=== PATIENT | male | born 1960 | race Caucasian/White ===

== ENCOUNTER 2016-06-23 12:19 | Inpatient (IN) | payer BC ==
[~2016-06-23] VITALS: Ht 177.8 cm; Wt 113.4 kg
[2016-07-03] MEDS ORDERED: HYDR-3516 PO (09:46)
[2016-07-03] MEDS ORDERED: METO100T9 PO (09:46)
[2016-07-03] MEDS ORDERED: FENO1TAB46 PO (09:46)
[2016-07-03] MEDS ORDERED: OMEP40CA2 PO (09:46)
[2016-07-03] MEDS ORDERED: LORA-400 PO (09:46)
[2016-07-03] MEDS ORDERED: IRON18TA2 PO (09:46)
[2016-07-03] MEDS ORDERED: ALPR1TAB3 PO (09:46)
[2016-07-03] MEDS ORDERED: NAPR220T95 PO (09:46)
--- NOTE | 2016-07-04 05:07 | MH ---
cc: ALONDRA QUIROZ M.D. DATE OF ADMISSION: 07/04/2016 ADMISSION DIAGNOSIS Right knee osteoarthritis. HISTORY This is a 55-year-old male with severe arthritis of the right knee. Despite conservative care the patient is painful and symptomatic. He presents for surgical treatment. PAST MEDICAL HISTORY, SOCIAL HISTORY, FAMILY HISTORY, REVIEW OF SYSTEMS See attached notes. PHYSICAL EXAMINATION GENERAL: Average build male in moderate distress with his right knee. HEENT: Normocephalic, atraumatic. Pupils equal, round, reactive to light and accommodation. Extraocular motions intact. NECK: Supple. CHEST: Clear. HEART: Regular rate and rhythm. ABDOMEN: Soft, nontender with normoactive bowel sounds. MUSCULOSKELETAL EXAMINATION: Right knee with pain with range of motion. Mild deformity. Crepitus with range of motion. NEUROLOGIC AND VASCULAR EXAMINATION: Within normal limits. IMPRESSION Osteoarthritis right knee. PLAN Right total knee replacement arthroplasty. CONSENT There are risks with surgery including infection, bleeding, loss of motion, continued pain, need for further surgery, neurologic and vascular injury. The patient understands these issues and wishes to press on with surgery as outlined above. MD ALICE Umanzor/JACLYN /10:45 PM /5:02 AM
[2016-07-04] MEDS ORDERED: VANCOMYCIN HCL 1000 MG VIAL ONE (06:10)
[2016-07-04] MEDS ORDERED: LACTATED RINGER'S 1000 ML INJ 1,000 ML ONE (06:10)
[2016-07-04] MEDS ORDERED: SODIUM CHLOR 0.9% 250 ML INJ 250 ML ONE (06:10)
[2016-07-04 06:20] VITALS: BP 140/89; PULSE 87; RESP 16; TEMP 97.9; O2SAT 95
[2016-07-04 06:30] VITALS: PULSE 82
[2016-07-04] MEDS ORDERED: LACTATED RINGER'S 1000 ML IV SCH (06:30)
[2016-07-04] MEDS ORDERED: INSULIN HUMAN REGULAR 1,000 UNITS/10 ML VIAL SQ PRN (06:30)
[2016-07-04] MEDS ORDERED: METOPROLOL TARTRATE 25 MG TAB PO PRN (06:30)
[2016-07-04] MEDS ORDERED: VANCOMYCIN 1000 MG/NS 250 ML (for <70 kg) IV SCH ×2 (06:30)
[2016-07-04] MEDS: SODIUM CHLORID 0.9% 500 ML IV SCH ×2 (06:30→23:10)
[2016-07-04] MEDS ORDERED: POVIDONE IODINE 7.5% SCRUB 118 ML BOTTLE TOPICAL SCH (06:30)
[2016-07-04] MEDS ORDERED: MIDAZOLAM HCL 5 MG/5 ML VIAL ONE (06:39)
[2016-07-04] MEDS ORDERED: EXPAREL PERI-ARTICULAR INJECTION (TOTAL VOL. 60 ML) P-ARTICULR SCH ×2 (07:30)
[2016-07-04] MEDS ORDERED: TRANEXAMIC ACID IV SCH (07:30)
[2016-07-04] MEDS ORDERED: ceFAZolin 2 GM PREMIX 50 ML ONE (07:30)
[2016-07-04] MEDS ORDERED: SODIUM CHLORIDE 0.9% IV SCH (07:30)
[2016-07-04] MEDS ORDERED: GENTAMICIN SULFATE 80 MG/2 ML VIAL IRRIGATION ONE (08:13)
[2016-07-04] MEDS: LACTATED RINGER'S 1000 ML INJ 1,000 ML IV SCH ×2 (09:54→22:24)
[2016-07-04] MEDS ORDERED: Post-op Orders (for Pharmacy) MISC XX ONE (10:00)
[2016-07-04] MEDS ORDERED: SODIUM CHLORIDE 0.9% FLUSH 5 ML FLUSH IVF PRN (10:00)
[2016-07-04] MEDS ORDERED: MISCELLANEOUS NURSING INFORMATION XX PRN (10:00)
[2016-07-04] MEDS ORDERED: MORPHINE SULFATE 8 MG/ML INJ IM PRN (10:00)
[2016-07-04] MEDS ORDERED: MISCELLANEOUS PHARMACY INFORMATION XX ONE (10:00)
[2016-07-04] MEDS ORDERED: oxyCODONE/ACETAMINOPHEN 5 MG/325 MG TAB PO PRN (10:00)
[2016-07-04] MEDS ORDERED: NALOXONE HCL 0.4 MG/ML AMP IV PRN (10:00)
[2016-07-04] MEDS ORDERED: TRANEXAMIC ACID INJ 1,100 MG in SODIUM CHLORIDE 0.9% INJ 100 ML IV SCH (10:00)
[2016-07-04] MEDS ORDERED: ALPRAZolam 1 MG TAB PO PRN (10:00)
--- NOTE | 2016-07-04 10:07 | PD.OP ---
cc: Shukri Corral MD Operative Report Date of Surgery: Jul 04, 2016 Preoperative Diagnosis: Osteoarthritis right knee, end-stage. Status post ACL reconstruction, remote Postoperative Diagnosis: Same Procedure: Right total knee replacement arthroplasty, anterior Anesthesia: Gen. Surgeon: Shukri Corral [employer] Operations Specialist(s): KEVIN Miles Operation and Findings: EBL: 200 cc INDICATION: This patient presents with long-standing arthritis of the knee. Attachment record documents conservative measures. The patient now presents for surgical treatment. NOTE: July Mlies PA-C was present for the entire surgical procedure as my nurse first assist. In my medical opinion her skill and care was necessary for proper management of this patient. TOURNIQUET TIME: 80 minutes COMPANY: [employer] FEMUR: Size 5, posterior cruciate sacrificing TIBIA: Size 5, fixed bearing PATELLA: 38 mm POLYETHYLENE INSERT: 9 mm PROCEDURE: This patient was brought the operating room and anesthetized in the supine position. The patient was positioned supine on the table. The tourniquet was placed about the thigh, and the leg was scrubbed with alcohol followed by Hibiclens followed by ChloraPrep and draped sterilely. A timeout was done, and antibiotics were given. After exsanguination the tourniquet was inflated to 250 mmHg. An anterior incision was made and a median parapatellar arthrotomy was performed. The previous incision was excised. The patella was released laterally and subluxed allowing freehand cut of the patella which was then sized. A metal cap was placed over the exposed patellar surface for protection. A pilot teacher hole was placed in the distal femur allowing a 5 valgus cut removing 12 mm from the distal femur. Anterior posterior and chamfer cuts were made. The posterior stabilize osteotomy was made. The attention was directed to the tibia. Retractors were positioned. The external alignment guide was used allowing the lateral tibia to be used as referencing guide and cut utilizing an oscillating saw taking care to avoid any injury to the surrounding soft tissues. This was sized properly. Trial reduction showed that the insert fit nicely. The patient had range of motion extension 0 flexion 120. A medial release was necessary. The bony surfaces prepared. On the back table 2 packets of methylmethacrylate were mixed. The components were cemented. Excess cement was removed. The tourniquet let down and hemostasis was controlled. The final plastic insert was inserted. Range of motion was the same as previously noted. A drain was brought through a separate stab incision. The arthrotomy was repaired with interrupted #1 Vicryl suture, subcutaneous tissue 2-0 Vicryl suture and skin with metallic evelina A sterile dressing was applied. Sponge counts, needle counts and instrument counts were all correct. The patient tolerated procedure well and was taken to recovery in satisfactory condition. FINDINGS: There was evidence of previous interference screws for an ACL graft which were removed. There was a significant varus deformity. The MCL release was from the deep fibers allowing a correction of the deformity. The final solution was very satisfactory. Shukri Corral MD Jul 04, 2016 10:07
[2016-07-04] MEDS ORDERED: OXYC1TAB63 PO (10:08)
[2016-07-04] MEDS ORDERED: XARE10TA PO (10:08)
[2016-07-04] MEDS ORDERED: BUPIVACAINE HCL PF 0.5% 30 ML VIAL NERV BLOCK ONE (10:33)
[2016-07-04] MEDS ORDERED: fentaNYL CITRATE 250 MCG/5 ML AMP ONE (10:55)
[2016-07-04] MEDS ORDERED: MORPHINE SULFATE 4 MG/ML INJ ONE (10:59)
[2016-07-04] MEDS ORDERED: *morphine SULFATE 8 MG/ML PERIprocedure ONLY ONE ×2 (11:07→11:13)
[2016-07-04] MEDS ORDERED: DO NOT ADM ANY ANTICOAGULANT DRUGS XX PRN (11:30)
--- NOTE | 2016-07-04 11:30 | RADRPT ---
EXAM DATE/TIME: 07/04/2016 10:54 [facility] COMPARISON: No previous studies available for comparison. INDICATIONS : Post op right total knee. MEDICAL HISTORY : None. SURGICAL HISTORY : None. ENCOUNTER: Initial ACUITY: 1 day PAIN SCORE: Non-responsive. LOCATION: Right knee. FINDINGS: 2 views of the knee show a total knee prosthesis in good position. No fracture or dislocation is obse rved. Soft tissue swelling is noted. Small joint effusion. A surgical drain surgical evelina noted. CONCLUSION: Total knee prosthesis in good position. Mak Longo Jr., MD on July 04, 2016 at 11:17 Board Certified Radiologist. This report was verified electronically.
[2016-07-04] MEDS: MORPHINE SULFATE 30 MG/30 ML PCA IV SCH ×2 (11:48→23:14)
[2016-07-04 12:00] VITALS: BP 137/84; PULSE 84; RESP 18; TEMP 97.4; O2SAT 94
[2016-07-04] MEDS ORDERED: PROPOFOL 200 MG/20 ML AMP IV ONE (12:00)
[2016-07-04] MEDS ORDERED: LACTATED RINGER'S 1000 ML INJ 1,000 ML IV ONE (12:00)
[2016-07-04] MEDS ORDERED: ONDANSETRON HCL 4 MG/2 ML VIAL IV PUSH ONE (12:00)
[2016-07-04 16:17] VITALS: BP 112/82; PULSE 90; RESP 22; TEMP 98.7; O2SAT 98
[2016-07-04] MEDS ORDERED: WALKER WHEELS/F1 MIS (17:15)
[2016-07-04] MEDS ORDERED: CPMMACHINE (17:15)
--- NOTE | 2016-07-04 17:16 | HHI.FF ---
Face to Face Verification Diagnosis: (1) Right knee pain (2) Osteoarthritis of right knee Physical Therapy Gait training, Safety evaluation, Transfer training, bed to chair Knee: Total knee, Protocol: Right, Full weight bearing Canvas Knee Splint: When in bed & 2 pillows btw thighs Right LE Weight Bearing: WB as tolerated Additional Instructions PT 5 days/wk for 2 weeks. WBAT RLE. Walker as needed. CPM, 0-70 w goal of 100 flexion. CKS at night. Nursing RN Days per Week: 3 x Week(s): 1 Dressing Changes: Do not change dressing Additional Instructions Vitals assessment, dressing assessment - do not change unless saturated. I have seen patient Du Hernandez on 07/04/16. My clinical findings support the need for the requested home health care services because: Limited ability to care for self High risk of falls I certify that my clinical findings support that this patient is homebound because: Post-op weakness Unsteady gait/balance Sujey Centeno Jul 04, 2016 17:16
[2016-07-04 19:44] VITALS: BP 131/85; PULSE 93; RESP 20; TEMP 96.7
[2016-07-04 20:51] VITALS: O2SAT 98
[2016-07-04] MEDS: SODIUM CHLORIDE 0.9% FLUSH 5 ML FLUSH IVF SCH (21:00)
[2016-07-04] MEDS: SENNOSIDES 8.6 MG TAB PO SCH (21:28)
[2016-07-04] MEDS: MAGNESIUM HYDROXIDE SUSP 30 ML CUP PO SCH (21:29)
[2016-07-04] MEDS: LORATADINE/PSEUDOEPHEDRINE 5 MG/120 MG TAB PO SCH (21:30)
[2016-07-04] MEDS: PCA - TOTAL MG MORPHINE DELIVERED PER SHIFT SCH (22:00)
[2016-07-04] MEDS: TEMAZEPAM 15 MG CAP PO PRN (23:03)
[2016-07-05] VITALS (7 sets, daily range): BP systolic 123–150; BP diastolic 78–94; PULSE 90–109; RESP 18–20; TEMP 98.7–99.6; O2SAT 93–99
[2016-07-05] MEDS: LACTATED RINGER'S 1000 ML INJ 1,000 ML IV SCH ×2 (01:44→20:07)
[2016-07-05] MEDS: PCA - TOTAL MG MORPHINE DELIVERED PER SHIFT SCH (06:00)
[2016-07-05 06:05] LABS: HEMATOCRIT 34.6 % (39.0-51.0); REVIEW FLAG FINAL
--- NOTE | 2016-07-05 07:43 | PD.ORT.PN ---
Subjective Subjective Remarks Right knee pain doing very well until this morning. Pain began to increase when block wore off. No other concerns. No CP or SOB. Was about to order breakfast. Objective Vitals Vital Signs Date Time Temp Pulse Resp B/P Pulse Ox O2 Delivery O2 Flow Rate FiO2 07/05/16 04:00 98.7 90 18 134/78 96 07/05/16 00:00 98.8 94 18 139/94 95 07/04/16 23:19 16 07/04/16 23:14 16 07/04/16 22:00 15 07/04/16 20:51 98 Nasal Cannula 2.00 07/04/16 19:44 96.7 93 20 131/85 07/04/16 16:17 98.7 90 22 112/82 98 07/04/16 12:00 97.4 84 18 137/84 94 07/04/16 11:48 12 07/04/16 11:30 98.3 87 14 136/82 99 Nasal Cannula 3 07/04/16 11:15 83 14 151/89 97 Nasal Cannula 3 07/04/16 11:00 82 14 153/90 97 Nasal Cannula 3 07/04/16 10:45 78 14 140/89 97 Nasal Cannula 3 07/04/16 10:34 98.3 78 14 155/82 95 Nasal Cannula 4 I/O 07/04/16 07/04/16 07/04/16 07/05/16 07/05/16 07/05/16 07:00 15:00 23:00 07:00 15:00 23:00 Intake Total 1100 ml 1536 ml 240 ml Output Total 910 ml 70 ml 1100 ml Balance 190 ml 1466 ml -860 ml Intake Oral 240 ml 240 ml IV Total 1296 ml Other 1100 ml Output Urine Total 600 ml 1100 ml Drainage Total 110 ml 70 ml Estimated Blood Loss 200 ml # Bowel Movements 0 0 Result Diagram: 07/05/16 0459 Imaging Last 24 hours Impressions Knee X-Ray 07/04/16 0954 Signed Impressions: Service Date/Time: Monday, July 04, 2016 10:54 - CONCLUSION: Total knee prosthesis in good position. Mak Longo Jr., MD Objective Remarks Sitting up in bed, NAD VSS RLE Dressing / CKS in place, drain in place, mild swelling thigh and calf both supple, neg homans +motor at, +sens, +nvi Assessment & Plan Ortho Post Op Day #: 1 Problem List: Assessment and Plan pod#1 s/p R TKA Doing well. 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 PT - WBAT LLE. Walker as needed. CPM 0-60 with goal of 100. Xarelto 10mg qd D/C right knee drain. Hold dressing changes unless saturated. D/C planning, home w [facility] tomorrow. F2F written. Sujey Centeno Jul 05, 2016 07:43
[2016-07-05] MEDS: PANTOPRAZOLE SOD 40 MG DELAYED RELEASE TAB PO SCH (08:28)
[2016-07-05] MEDS: METOPROLOL SUCCINATE 50 MG EXTENDED RELEASE TAB PO SCH (08:29)
[2016-07-05] MEDS: MAGNESIUM HYDROXIDE SUSP 30 ML CUP PO SCH ×2 (08:31→20:06)
[2016-07-05] MEDS: LORATADINE/PSEUDOEPHEDRINE 5 MG/120 MG TAB PO SCH ×2 (08:32→20:09)
[2016-07-05] MEDS: SODIUM CHLORIDE 0.9% FLUSH 5 ML FLUSH IVF SCH ×2 (08:32→20:06)
[2016-07-05] MEDS: oxyCODONE/ACETAMINOPHEN 5 MG/325 MG TAB PO PRN ×3 (11:54→20:06)
[2016-07-05] MEDS: RIVAROXABAN 10 MG TAB PO SCH (11:55)
[2016-07-05] MEDS: TEMAZEPAM 15 MG CAP PO PRN (20:06)
[2016-07-05] MEDS: SENNOSIDES 8.6 MG TAB PO SCH (20:06)
[2016-07-05] MEDS ORDERED: CARISOPRODOL 350 MG TAB PO PRN (21:30)
[2016-07-06] VITALS: BP 131/81; PULSE 93; RESP 16; TEMP 98.8; O2SAT 96
[2016-07-06] MEDS: oxyCODONE/ACETAMINOPHEN 5 MG/325 MG TAB PO PRN ×2 (06:06→10:55)
[2016-07-06 08:02] VITALS: BP 125/69; PULSE 94; RESP 16; TEMP 97; O2SAT 93
--- NOTE | 2016-07-06 08:46 | PD.ORT.PN ---
Subjective Subjective Remarks Right knee pain doing better today. He states he has adjusted to it. No new complaints. Would prefer to go home today. urinating well. No CP or SOB. Objective Vitals Vital Signs Date Time Temp Pulse Resp B/P Pulse Ox O2 Delivery O2 Flow Rate FiO2 07/06/16 08:02 97.0 94 16 125/69 93 07/06/16 00:00 98.8 93 16 131/81 96 07/05/16 20:28 99.3 109 20 123/80 96 07/05/16 17:10 99.1 90 20 126/80 99 07/05/16 16:00 99.6 101 18 142/87 93 07/05/16 12:00 98.9 106 18 143/90 95 I/O 07/05/16 07/05/16 07/05/16 07/06/16 07/06/16 07/06/16 07:00 15:00 23:00 07:00 15:00 23:00 Intake Total 240 ml 1220 ml 240 ml 240 ml Output Total 1100 ml Balance -860 ml 1220 ml 240 ml 240 ml Intake Oral 240 ml 1220 ml 240 ml 240 ml Output Urine Total 1100 ml # Voids 3 1 2 # Bowel Movements 0 0 0 1 Result Diagram: 07/05/16 0459 Imaging Last 24 hours Impressions Knee X-Ray 07/04/16 0954 Signed Impressions: Service Date/Time: Monday, July 04, 2016 10:54 - CONCLUSION: Total knee prosthesis in good position. Mak Longo Jr., MD Objective Remarks Sitting up in bed, NAD VSS RLE Dressing c/d/i, cks off, drain removed - site clean, mild swelling thigh and calf both supple, neg homans +motor at, +sens, +nvi Assessment & Plan Ortho Post Op Day #: 2 Problem List: Assessment and Plan pod#2 s/p R TKA Ortho stable. Ok to d/c home w [facility] after PT today. PO pain meds as needed. PT - WBAT LLE. Walker as needed. CPM 0-60 with goal of 100. Xarelto 10mg qd Hold dressing changes unless saturated. F/U in 2 weeks as scheduled. F2F written. Sujey Centeno Jul 06, 2016 08:46
--- NOTE | 2016-07-06 08:46 | HHI.DCPOC ---
Discharge Care Plan Diagnosis: (1) Right knee pain (2) Osteoarthritis of right knee Your Health Problems Are: Incision/Drains Swelling Goals to Promote Your Health * To prevent worsening of your condition and complications * To maintain your health at the optimal level Directions to Meet Your Goals Take your medications as prescribed Follow your dietary instruction Follow activity as directed Keep your appointments as scheduled Take your immunizations and boosters as scheduled If your symptoms worsen call your PCP, if no PCP go to Urgent Care Center or Emergency Room Smoking is Dangerous to Your Health. Avoid second hand smoke Call the 24-hour hour crisis hotline for domestic abuse at Sujey Centeno Jul 06, 2016 08:46
--- NOTE | 2016-07-06 08:51 | HHI.DS ---
Discharge Summary Admission Date Jul 04, 2016 at 05:38 Discharge Date: Jul 06, 2016 Admitting Diagnosis see below Diagnosis: (1) Right knee pain Diagnosis: Principal (2) Osteoarthritis of right knee Diagnosis: Principal Procedures Right total knee arthroplasty Brief History This is a 55 year old male patient with a long history of right knee pain. He had a previous ACL repair. He slowly began to have increased knee pain so he sought out new medical evaluation. He was found to have moderate to severe osteoarthritis of the right knee. He also began to develop a significant varus deformity of almost 15 degrees. Conservative measures were pursued for a period of time but he continued to decline. Surgical treatment was eventually recommended and he elected to move forward. CBC/BMP: 07/05/16 0459 Significant Findings Laboratory Tests Test 07/05/16 04:59 Hemoglobin 11.3 GM/DL (13.0-17.0) Hematocrit 34.6 % (39.0-51.0) PE at Discharge Sitting up in bed, NAD VSS RLE Dressing c/d/i, cks off, drain removed - site clean, mild swelling thigh and calf both supple, neg homans +motor at, +sens, +nvi Hospital Course Surgical treatment was performed on the day of admission without complication. He recovered well in pACU and was transferred to the orthopaedic floor. Pain was controlled with IV and oral medications. DVT prophylaxis was initiated pod# 1. He was compliant with physical therapy, his CPM, and all restrictions. After 2 days he was found to be stable and discharged home with home health care with instruction to continue PT and to pursue a high fiber diet for the next 3-5 days. Pt Condition on Discharge: Stable Discharge Disposition: Disch w/ Home Health Serv Discharge Instructions Diet Instructions: As Tolerated, No Restrictions, High Fiber Diet Activities You Can Perform: Weight Bearing as Ruben Activities to Avoid: Strenuous Activity Additional Activity Instruc.: TKA protocol New Medications: CPM-Continuous Passive Motion Machine (CPM-Continuous Passive Motion Machine) 1 Ea Device 1 EA .ROUTE DIRECTED #1 Ref 0 EA Walker with Front Wheels (Walker with Front Wheels) 1 Mis Mis 1 EA .ROUTE DIRECTED #1 Ref 0 EA Oxycodone-Acetaminophen (Oxycodone-Acetaminophen) 5-325 mg Tab 1 TAB PO Q4H PRN PAIN LESS THAN 5 ON SCALE #50 TAB Rivaroxaban (Xarelto) 10 Mg Tab 10 MG PO Q24H Prevent Blood Clot #15 TAB Continued Medications: Alprazolam (Alprazolam) 1 Mg Tab 1 MG PO Q6H PRN ANXIETY Ref 0 TAB Fenofibrate (Fenofibrate) 40 Mg Tab 16 MG PO DAILY #30 Ref 0 TAB Ferrous Fumarate (Iron) 18 Mg Tab Unknown Dose PO DAILY Nutritional Supplement Ref 0 TAB Hydrocodone-Acetaminophen (Hydrocodone-Acetaminophen) 5-325 mg Tab 1 TAB PO Q4H PRN PAIN Ref 0 TAB Loratadine-Pseudoephedrine 24 HR (Claritin-D 24 HR) 10-240 Mg Tab 1 TAB PO DAILY Allergy Management Ref 0 TAB Metoprolol Succinate ER 24 HR (Metoprolol Succinate ER 24 HR) 100 Mg Tab 150 MG PO DAILY #30 Ref 0 TAB Naproxen Sodium (Aleve) 220 Mg Tab 220 MG PO QID PRN Pain Management Ref 0 TAB Omeprazole (Omeprazole) 40 Mg Cap 40 MG PO DAILY #30 Ref 0 CAP Sujey Centeno Jul 06, 2016 08:51
[2016-07-06] MEDS: LORATADINE/PSEUDOEPHEDRINE 5 MG/120 MG TAB PO SCH (09:00)
[2016-07-06] MEDS: SODIUM CHLORIDE 0.9% FLUSH 5 ML FLUSH IVF SCH (09:00)
[2016-07-06] MEDS: MAGNESIUM HYDROXIDE SUSP 30 ML CUP PO SCH (09:00)
[2016-07-06 10:02] VITALS: O2SAT 94
[2016-07-06] MEDS: PANTOPRAZOLE SOD 40 MG DELAYED RELEASE TAB PO SCH (10:50)
[2016-07-06] MEDS: METOPROLOL SUCCINATE 50 MG EXTENDED RELEASE TAB PO SCH (10:50)
[2016-07-06] MEDS: RIVAROXABAN 10 MG TAB PO SCH (10:50)
[2016-07-06] MEDS ORDERED: NEOSTIGMINE 3 MG/3 ML SYR IV ONE (12:00)
[2016-07-06 12:02] VITALS: BP 131/80; PULSE 94; RESP 18; TEMP 97.7; O2SAT 96
== END 2016-07-06 13:33 | disposition home or self-care (01) | DRG 470 ==
LOC: HSDI 07-04 05:38 → N06B 07-04 11:56
PROVIDERS: ADMIT Orthopaedic Surgery Orthopaedic Surgery of the Spine; ATTEND Orthopaedic Surgery Orthopaedic Surgery of the Spine
PROC: 0SRC0J9 Replacement of Right Knee Joint with Synthetic Substitute, Cemented, Open Approach (ICD-10-PCS; principal; 2016-07-04 07:24)
DX: M17.11 Unilateral primary osteoarthritis, right knee (principal); I10 Essential (primary) hypertension; F41.9 Anxiety disorder, unspecified; K21.9 Gastro-esophageal reflux disease without esophagitis; E66.9 Obesity, unspecified; Z68.35 Body mass index [BMI] 35.0-35.9, adult; F17.210 Nicotine dependence, cigarettes, uncomplicated
CPT/HCPCS: 36415; 73560; 80048; 81001; 85014; 85018; 85025; 85610; 85652; 85730; 86850; 86900; 86901; 86920; 94150; C1776; C9290; J0690; J1580; J2250; J2270; J2405; J2710; J3010; J3370; J7050; J7120; L1830

== ENCOUNTER → 2016-07-03 | Outpatient (CLI) | payer BC ==
[~2016-07-03] MED LIST: ALPR1TAB3 PO; CPMMACHINE; FENO1TAB46 PO; HYDR-3516 PO; IRON18TA2 PO; LORA-400 PO; METO100T9 PO; NAPR220T95 PO; OMEP40CA2 PO; OXYC1TAB63 PO; WALKER WHEELS/F1 MIS; XARE10TA PO
[2016-07-03 10:13] LABS: AUTOMATED NEUTROPHIL # 8.4 TH/MM3 (1.8-7.7); BASOPHIL % 0.3 % (0.0-2.0); EOSINOPHIL # 0.2 TH/MM3 (0-0.4); EOSINOPHIL % 1.8 % (0.0-4.0); HEMATOCRIT 40.4 % (39.0-51.0); HEMO FLAGS DIFF FINAL; LYMPH % 21.5 % (9.0-44.0); LYMPHOCYTE # 2.7 TH/MM3 (1.0-4.8); MEAN CELL VOLUME 90.8 FL (80.0-100.0); MEAN CORPUSCULAR HEMOGLOBIN 29.8 PG (27.0-34.0); MEAN CORPUSCULAR HGB CONC 32.9 % (32.0-36.0); MONO % 10.1 % (0.0-8.0); NEUT % 66.3 % (16.0-70.0); PLATELET COUNT 310 TH/MM3 (150-450); RED BLOOD COUNT 4.46 MIL/MM3 (4.50-5.90); RED CELL DISTRIBUTION WIDTH 14.5 % (11.6-17.2); WHITE BLOOD COUNT 12.7 TH/MM3 (4.0-11.0)
[2016-07-03 10:17] LABS: BLOOD, URINE SMALL (NEG); GLUCOSE,URINE NEG (NEG); KETONE, URINE NEG (NEG); MUCUS URINE FEW /lpf (OCC); NITRITE,URINE NEG (NEG); PH, URINE 5.5 (5.0-8.5); SQUAMOUS EPITHELIAL CELL URINE <1 /hpf (0-5); URINE COLOR YELLOW (YELLW/STRAW)
[2016-07-03 10:18] LABS: COMMENT (UR) CULT NOT INDICATED; CULTURE IF INDICATED CULT NOT INDICATED
[2016-07-03 10:19] LABS: APTT (PATIENT) 27.1 SEC (24.3-30.1); PROTHROMBIN TIME - PATIENT 10.5 SEC (9.8-11.6)
[2016-07-03 10:28] LABS: BICARBONATE 27.4 MEQ/L (21.0-32.0); POTASSIUM 4.2 MEQ/L (3.5-5.1)
[2016-07-03 10:31] LABS: WESTERGREN SEDIMENTATION RATE 19 mm/hr (0-20)
== END ==
LOC: CPRE 09:15
PROVIDERS: ATTEND Orthopaedic Surgery Orthopaedic Surgery of the Spine
DX: Z01.812 Encounter for preprocedural laboratory examination (principal); M17.11 Unilateral primary osteoarthritis, right knee; Z79.01 Long term (current) use of anticoagulants
CPT/HCPCS: 36415; 80048; 81001; 85025; 85610; 85652; 85730

== ENCOUNTER 2016-10-31 13:31 | Inpatient (IN) | payer BC ==
[~2016-10-31] VITALS: Ht 177.8 cm; Wt 127.4 kg
[~2016-10-31 13:31] MED LIST changes: -CPMMACHINE; -FENO1TAB46 PO; -IRON18TA2 PO; -NAPR220T95 PO; -OXYC1TAB63 PO; -WALKER WHEELS/F1 MIS; -XARE10TA PO
[2016-11-06] MEDS ORDERED: FENO160T PO (11:57)
[2016-11-06] MEDS ORDERED: MEDI220T PO (11:57)
[2016-11-06] MEDS ORDERED: MULT1TAB46 PO (11:58)
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
[2016-11-07] MEDS ORDERED: SODIUM CHLORIDE 0.9% IV SCH (07:00)
[2016-11-07] MEDS ORDERED: POVIDONE IODINE 7.5% SCRUB 118 ML BOTTLE TOPICAL SCH (07:00)
[2016-11-07] MEDS ORDERED: SODIUM CHLORID 0.9% 500 ML IV PRN (07:00)
[2016-11-07] MEDS ORDERED: LACTATED RINGER'S 1000 ML IV PRN (07:00)
[2016-11-07] MEDS ORDERED: EXPAREL PERI-ARTICULAR INJECTION (TOTAL VOL. 60 ML) P-ARTICULR SCH ×2 (07:00)
[2016-11-07] MEDS ORDERED: METOPROLOL TARTRATE 25 MG TAB PO PRN (07:00)
[2016-11-07] MEDS ORDERED: INSULIN HUMAN REGULAR 1,000 UNITS/10 ML VIAL SQ PRN (07:00)
[2016-11-07] MEDS ORDERED: TRANEXAMIC ACID IV SCH (07:00)
[2016-11-07] MEDS ORDERED: POVIDONE IODINE 5% (ANTISEPSIS KIT) 4 APPLICATIONS EACH NARE PRN (07:00)
[2016-11-07] MEDS ORDERED: ceFAZolin 2 GM PREMIX 50 ML IV SCH (07:00)
[2016-11-07] MEDS ORDERED: CHLORHEXIDINE GLUCONATE 2 % 1 PACK (2 CLOTHS) TOPICAL PRN (07:00)
[2016-11-07] MEDS ORDERED: VANCOMYCIN 1000 MG/NS 250 ML (for <70 kg) IV SCH ×2 (07:00)
[2016-11-07] MEDS ORDERED: GENTAMICIN SULFATE 80 MG/2 ML VIAL ONE (07:08)
[2016-11-07] MEDS ORDERED: CORTI10A RIGHT EAR (07:29)
[2016-11-07 07:31] VITALS: BP 150/91; PULSE 102; RESP 18; TEMP 98; O2SAT 97
[2016-11-07] MEDS ORDERED: ACETAMINOPHEN 1000 MG/100 ML VIAL IV ONE (08:14)
[2016-11-07] MEDS ORDERED: MIDAZOLAM HCL 2 MG/2 ML VIAL ONE (08:14)
[2016-11-07] MEDS ORDERED: FAMOTIDINE 20 MG/2 ML VIAL ONE (08:14)
[2016-11-07] MEDS ORDERED: MAGNESIUM HYDROXIDE SUSP 30 ML CUP PO PRN (11:30)
[2016-11-07] MEDS ORDERED: MORPHINE SULFATE 8 MG/ML INJ IV PUSH PRN (11:30)
[2016-11-07] MEDS ORDERED: diphenhydrAMINE HCL 25 MG CAP PO PRN (11:30)
[2016-11-07] MEDS ORDERED: NALOXONE HCL 0.4 MG/ML AMP IV PRN (11:30)
[2016-11-07] MEDS ORDERED: Post-op Orders (for Pharmacy) MISC XX ONE (11:30)
[2016-11-07] MEDS ORDERED: ACETAMINOPHEN/HYDROcodone 325 MG/10 MG TAB PO PRN ×2 (11:30)
[2016-11-07] MEDS ORDERED: ALPRAZolam 1 MG TAB PO PRN (11:30)
[2016-11-07] MEDS ORDERED: LORATADINE PSEUDOEPHEDRINE PO PRN (11:30)
[2016-11-07] MEDS ORDERED: ONDANSETRON HCL 4 MG/2 ML VIAL IVP PRN (11:30)
[2016-11-07] MEDS ORDERED: SODIUM CHLORIDE 0.9% FLUSH 5 ML FLUSH IVF PRN (11:30)
--- NOTE | 2016-11-07 11:34 | PD.OP ---
cc: Diana Corral MD Operative Report Date of Surgery: Nov 07, 2016 Preoperative Diagnosis: Malunion left tibia and fibula Postoperative Diagnosis: Same Procedure: Osteotomy left fibula. Osteotomy right tibia with internal fixation Anesthesia: Gen. Surgeon: Diana Corral Label Remover(s): KEVIN Miles Operation and Findings: EBL: 50 cc INDICATION: This patient presents with a significant deformity to the left leg related to a malunion of the tibia treated many years ago. The patient developing significant arthritis of the knee. The patient now presents for an osteotomy with realignment of the tibia with an osteotomy of the fibula. The patient may come to total knee replacement arthroplasty NOTE: July Miles PA-C was present for the entire surgical procedure as my first helper. In my medical opinion her skill and care was necessary for the proper management of this patient. COMPONENTS: COMPANY: [employer] PROCEDURE: This patient was brought to the operating room and anesthetized in the supine position and positioned on the Casey table. The left leg was scrubbed with alcohol followed by Hibiclens followed by chloro prep and draped sterilely. Antibiotics were given within 1 hour time window and a timeout was done. Intraoperative fluoroscopy was used marking proper skin markings. After elevation the tourniquet was inflated to 250 mmHg. A lateral incision was made. The fibula was exposed. It was osteotomized with a saw and osteotome at the location of his previous fracture which was malunited with a apex posterior and apex medial deformity. The wound was irrigated copiously. It was then closed with 2-0 Vicryl followed by running 3-0 Vicryl and Steri-Strips. The attention was directed to the major deformity of the tibia. An incision was made over the anteromedial aspect of the tibia. The fracture malunion was exposed. We expose around posteriorly and medially extending to the anterior portion but not significantly laterally. 2 Steinmann pins were used to diana the osteotomy was carefully measured using intraoperative fluoroscopy. An osteotomy to plain was made allowing reduction of the deformity. The fractures brought into reduced position and held with a large Steinmann pin. Intraoperative x-rays were obtained. An 8 hole plate was utilized. There was a shift of the osteotomy allowing a significant prominence of the previous callus on the medial side which was removed with the oscillating saw. A portion was removed later anteriorly. The 8 hole plate was contoured allowing compression across the fracture site. Multiple compression screws were utilized. This was brought into a near anatomic reduced position and alignment was felt be very satisfactory. All 8 screws were utilized. A single lag screw was placed anterior to posterior outside of the plate. Intraoperative x-rays were obtained. Alignment was satisfactory. The wound was irrigated copious the. Hemostasis was controlled. The tourniquet was let down. The deep fascia was approximated with interrupted #1 Vicryl suture, subcutaneous tissue 2-0 Vicryl suture and skin with running intradermal 3-0 Vicryl followed by benzoin and Steri-Strips. A posterior splint was applied. A sterile dressing was applied. The patient was awakened and taken to the recovery room in satisfactory condition FINDINGS: There was a solid malunion. The final reduction was excellent. Fixation was excellent. We could not determine any complications during the surgery. Diana Corral MD Nov 07, 2016 11:34
[2016-11-07] MEDS ORDERED: HYDR-3583 PO (11:39)
[2016-11-07] MEDS ORDERED: ENOX40P SQ (11:39)
[2016-11-07] MEDS ORDERED: *HYDROmorphone PF 1 MG VIAL PERIprocedural Use ONLY ONE ×2 (12:00→12:52)
[2016-11-07] MEDS ORDERED: ePHEDrine/NS 25 MG/5 ML SYR IV ONE (12:00)
[2016-11-07] MEDS ORDERED: PHENYLEPH/NS 1000 MCG/10 ML SYR IV ONE (12:00)
[2016-11-07] MEDS ORDERED: LACTATED RINGER'S 1000 ML INJ 1,000 ML IV ONE (12:00)
[2016-11-07] MEDS ORDERED: PROPOFOL 200 MG/20 ML AMP IV ONE (12:00)
[2016-11-07] MEDS ORDERED: ONDANSETRON HCL 4 MG/2 ML VIAL IV PUSH ONE (12:00)
[2016-11-07] MEDS ORDERED: NEOSTIGMINE 3 MG/3 ML SYR IV ONE (12:00)
[2016-11-07] MEDS: LACTATED RINGER'S 1000 ML INJ 1,000 ML IV SCH ×2 (12:00→19:51)
[2016-11-07] MEDS ORDERED: DO NOT ADM ANY ANTICOAGULANT DRUGS PRN (12:02)
--- NOTE | 2016-11-07 12:12 | RADRPT ---
EXAM DATE/TIME: 11/07/2016 11:05 [facility] COMPARISON: No previous studies available for comparison. INDICATIONS : ORIF Left tibia. MEDICAL HISTORY : None. SURGICAL HISTORY : None. ENCOUNTER: Initial ACUITY: 1 day PAIN SCORE: Non-responsive. LOCATION: Left tibia/fibula. FINDINGS: There is plate and screw fixation across previous fracture and osteotomy of the left tibia. There is also an osteotomy and remote fracture fibula. CONCLUSION: 1. Tibial fixation as above. Maulik Burleson MD on November 07, 2016 at 12:09 Board Certified Radiologist. This report was verified electronically.
[2016-11-07] MEDS ORDERED: *morphine SULFATE 8 MG/ML PERIprocedure ONLY ONE ×3 (12:19→12:41)
[2016-11-07] MEDS: MORPHINE SULFATE 30 MG/30 ML PCA IV SCH ×2 (12:32→20:28)
[2016-11-07] MEDS ORDERED: fentaNYL CITRATE 250 MCG/5 ML AMP ONE (12:48)
[2016-11-07] MEDS ORDERED: HYDROmorphone HCL PF 1 MG/ML VIAL IV ONE (13:00)
[2016-11-07 13:49] VITALS: BP 129/94; PULSE 100; RESP 14; TEMP 96.3; O2SAT 94
[2016-11-07] MEDS: PCA - TOTAL MG MORPHINE DELIVERED PER SHIFT SCH ×2 (14:00→22:00)
[2016-11-07 16:00] VITALS: BP 138/84; PULSE 100; RESP 15; TEMP 96.7; O2SAT 94
[2016-11-07] MEDS: CALCIUM/VITAMIN D 250 MG/125 U TAB PO SCH (17:32)
[2016-11-07 19:48] VITALS: BP 118/80; PULSE 90; RESP 19; TEMP 96.7; O2SAT 93
[2016-11-07] MEDS: DOCUSATE SODIUM 50 MG/SENNA 8.6 MG TAB PO SCH (19:51)
[2016-11-07] MEDS: SODIUM CHLORIDE 0.9% FLUSH 5 ML FLUSH IVF SCH (19:51)
[2016-11-07 23:31] VITALS: BP 127/81; PULSE 106; RESP 18; TEMP 97.7; O2SAT 93
[2016-11-08] MEDS ORDERED: ENOXAPARIN SODIUM 40 MG/0.4 ML SYRINGE SQ SCH
[2016-11-08 04:38] VITALS: BP 125/75; PULSE 98; RESP 19; TEMP 97.2; O2SAT 96
[2016-11-08] MEDS: PCA - TOTAL MG MORPHINE DELIVERED PER SHIFT SCH (06:00)
[2016-11-08 07:48] VITALS: BP 123/91; PULSE 94; RESP 18; TEMP 96.8; O2SAT 94
[2016-11-08] MEDS ORDERED: WALKER WHEELS/F1 MIS (07:48)
[2016-11-08] MEDS ORDERED: COMMODE 3-IN-11 MIS (07:48)
[2016-11-08 07:50] VITALS: BP 95/46; PULSE 74; RESP 18; TEMP 98.9; O2SAT 93
--- NOTE | 2016-11-08 07:52 | PD.ORT.PN ---
Subjective Subjective Remarks Moderate left leg pain. It is 'better than expected' compared to his right knee. No other concerns. Questioning going home today or tomorrow. No new CP or SOB. Objective Vitals Vital Signs Date Time Temp Pulse Resp B/P Pulse Ox O2 Delivery O2 Flow Rate FiO2 11/08/16 06:00 17 11/08/16 04:38 97.2 98 19 125/75 96 11/07/16 23:31 97.7 106 18 127/81 93 11/07/16 22:00 17 11/07/16 20:28 17 11/07/16 19:48 96.7 90 19 118/80 93 11/07/16 16:00 96.7 100 15 138/84 94 11/07/16 13:49 96.3 100 14 129/94 94 11/07/16 13:00 99 13 150/79 98 Nasal Cannula 3 11/07/16 12:45 95 12 144/74 95 Nasal Cannula 3 11/07/16 12:32 19 11/07/16 12:30 97 12 154/70 96 Nasal Cannula 3 11/07/16 12:15 106 22 155/94 98 Nasal Cannula 3 11/07/16 12:02 98.4 110 17 172/82 97 Simple Mask 6 I/O 11/07/16 11/07/16 11/07/16 11/08/16 11/08/16 11/08/16 07:00 15:00 23:00 07:00 15:00 23:00 Intake Total 1700 ml 1492 ml 720 ml Output Total 50 ml 275 ml Balance 1650 ml 1492 ml 445 ml Intake Oral 0 ml 720 ml 720 ml IV Total 772 ml Other 1700 ml Output Urine Total 0 ml 275 ml Estimated Blood Loss 50 ml # Voids 1 2 # Bowel Movements 0 0 0 Objective Remarks Sitting up in bed, NAD VSS LLE Dressing/splint c/d/i, mild swelling, no obvious drainage, +motor ehl and toes, +sens, +nvi neg homans Assessment & Plan Ortho Post Op Day #: 1 Problem List: Assessment and Plan pod#1 s/p Osteotomy left tibia with plate/screws 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 Keep dry. NonWBing Left LE. Walker for assistance Lovenox D/C planning, home today or tomorrow pending pain control. Likely no need for HHC as no dressing changes or formal PT. F/U in 2 weeks as scheduled. Sujey Centeno Nov 08, 2016 07:52
--- NOTE | 2016-11-08 07:53 | HHI.DS ---
Discharge Summary Admission Date Nov 07, 2016 at 06:24 Discharge Date: Nov 08, 2016 Admitting Diagnosis see below Diagnosis: (1) Deformity of left tibia Diagnosis: Principal Procedures Osteotomy left tibia with plates and screws Brief History This is a 56 year old male patient with a history of substantial bilateral knee osteoarthritis and left tibia deformity from a previously healed midshaft fracture. After years of conservative care for his knees he underwent right total knee arthroplasty. He was considering left total knee arthroplasty but unfortunately his tibial deformity would greatly impact his outcome. There was concern that if this was not treated prior to his knee that his left total knee replacement would be compromised and would wear improperly. It was recommended that he undergo left tibia osteotomy with plate and screws and he elected to move forward. PE at Discharge Sitting up in bed, NAD VSS LLE Dressing/splint c/d/i, mild swelling, no obvious drainage, +motor ehl and toes, +sens, +nvi neg [facility] Hospital Course Surgical treatment was performed on the day of admission without complication. He recovered well in PACU and was transferred to the orthopaedic floor. Pain was controlled with IV and oral medications. DVT prophylaxis was initiated with Lovenox. After 1 day he was found to be stable and discharged home with instruction be toe-touch weightbearing on the left. He was also instructed to pursue a high fiber diet and to continue his splint and keep it dry. Pt Condition on Discharge: Stable Discharge Disposition: Discharge Home Discharge Instructions Diet Instructions: As Tolerated, No Restrictions, High Fiber Diet Activities You Can Perform: Toe Touch Weight Bearing Activities to Avoid: Strenuous Activity New Medications: Commode 3-in-1 (Commode 3-in-1) 1 Mis Mis 1 EA .ROUTE DIRECTED #1 Ref 0 EA Walker with Front Wheels (Walker with Front Wheels) 1 Mis Mis 1 EA .ROUTE DIRECTED #1 Ref 0 EA Enoxaparin Inj (Lovenox Inj) 40 Mg/0.4 Ml Syr 40 MG SQ Q24H Prevent Blood Clot #15 INJECTION Hydrocodone-Acetaminophen (Hydrocodone-Acetaminophen) 10-325 mg Tab 1 TAB PO Q6H PRN PAIN LESS THAN 5 ON SCALE #50 TAB Continued Medications: Alprazolam (Alprazolam) 1 Mg Tab 1 MG PO Q6H PRN ANXIETY Ref 0 TAB Fenofibrate (Fenofibrate) 160 Mg Tab 160 MG PO DAILY chol #30 Ref 0 TAB Hydrocodone-Acetaminophen (Hydrocodone-Acetaminophen) 5-325 mg Tab 1 TAB PO Q8HR PRN PAIN Ref 0 TAB Loratadine-Pseudoephedrine 24 HR (Claritin-D 24 HR) 10-240 Mg Tab 1 TAB PO DAILY PRN ALLERGIES Ref 0 TAB Metoprolol Succinate ER 24 HR (Metoprolol Succinate ER 24 HR) 100 Mg Tab 150 MG PO DAILY #30 Ref 0 TAB Multiple Vitamin (Multi Vitamin Daily) 1 Tab Tab 1 TAB PO DAILY Nutritional Supplement Numrepma-Mwveyguzw-RA Otic Drops (Iooxtdkb-Gphmyuorq-VV Otic Drops) 1 % Soln 4 DROP RIGHT EAR QID Infection #1 Ref 0 BOTTLE Omeprazole (Omeprazole) 40 Mg Cap 40 MG PO DAILY #30 Ref 0 CAP Discontinued Medications: Naproxen Sodium (Naproxen Sodium) 220 Mg Tab 440 MG PO BID PRN Pain Management Ref 0 TAB Sujey Centeno Nov 08, 2016 07:53 Sujey Centeno Nov 08, 2016 07:53
[2016-11-08] MEDS: LACTATED RINGER'S 1000 ML INJ 1,000 ML IV SCH (08:00)
--- NOTE | 2016-11-08 08:44 | HHI.DCPOC ---
Discharge Care Plan Diagnosis: (1) Deformity of left tibia Your Health Problems Are: Incision/Drains Swelling Goals to Promote Your Health * To prevent worsening of your condition and complications * To maintain your health at the optimal level Directions to Meet Your Goals Take your medications as prescribed Follow your dietary instruction Follow activity as directed Keep your appointments as scheduled Take your immunizations and boosters as scheduled If your symptoms worsen call your PCP, if no PCP go to Urgent Care Center or Emergency Room Smoking is Dangerous to Your Health. Avoid second hand smoke Call the 24-hour hour crisis hotline for domestic abuse at Sujey Centeno Nov 08, 2016 08:44
[2016-11-08] MEDS ORDERED: FENOFIBRATE 145 MG TAB PO SCH (09:00)
[2016-11-08] MEDS ORDERED: METOPROLOL SUCCINATE 50 MG EXTENDED RELEASE TAB PO SCH (09:00)
[2016-11-08] MEDS ORDERED: MULTIVITAMINS/MINERALS THERAPEUTIC TAB PO SCH (09:00)
[2016-11-08] MEDS ORDERED: PANTOPRAZOLE SOD 40 MG DELAYED RELEASE TAB PO SCH (09:00)
[2016-11-08] MEDS: SODIUM CHLORIDE 0.9% FLUSH 5 ML FLUSH IVF SCH (09:00)
[2016-11-08] MEDS: DOCUSATE SODIUM 50 MG/SENNA 8.6 MG TAB PO SCH (09:36)
[2016-11-08] MEDS: CALCIUM/VITAMIN D 250 MG/125 U TAB PO SCH (09:37)
== END 2016-11-08 11:18 | disposition home or self-care (01) | DRG 493 ==
LOC: HSDI 11-07 06:24 → N06B 11-07 13:38
PROVIDERS: ADMIT Orthopaedic Surgery Orthopaedic Surgery of the Spine; ATTEND Orthopaedic Surgery Orthopaedic Surgery of the Spine
PROC: 0Q8 Lower Bones, Division (ICD-10-PCS; 2016-11-07)
PROC: 0QSH04Z Reposition Left Tibia with Internal Fixation Device, Open Approach (ICD-10-PCS; principal; 2016-11-07 08:53)
DX: S82.292 Other fracture of shaft of left tibia (principal); Z68.41 Body mass index [BMI] 40.0-44.9, adult; S82.402P Unspecified fracture of shaft of left fibula, subsequent encounter for closed fracture with malunion; I10 Essential (primary) hypertension; G62.9 Polyneuropathy, unspecified; M17.0 Bilateral primary osteoarthritis of knee; V49.9XXD Car occupant (driver) (passenger) injured in unspecified traffic accident, subsequent encounter; E66.9 Obesity, unspecified; Z87.891 Personal history of nicotine dependence; K21.9 Gastro-esophageal reflux disease without esophagitis; M54.9 Dorsalgia, unspecified; F10.10 Alcohol abuse, uncomplicated; Z96.651 Presence of right artificial knee joint
CPT/HCPCS: 73590; 76000; 86850; 86900; 86901; 86920; C1713; J0131; J0690; J1170; J1580; J1650; J2250; J2270; J2370; J2405; J2710; J3010; J3370; J7050; J7120

== ENCOUNTER 2017-07-10 11:30 | Inpatient (IN) | payer BC ==
[~2017-07-10] VITALS: Ht 177.8 cm; Wt 116.0 kg
[~2017-07-10 11:30] MED LIST changes: +COMMODE 3-IN-11 MIS; +CORTI10A RIGHT EAR; +ENOX40P SQ; +FENO160T PO; +HYDR-3583 PO; -METO100T9 PO; +METO1TAB43 PO; +MULT1TAB46 PO; +WALKER WHEELS/F1 MIS
[2017-07-31] MEDS ORDERED: LACTATED RINGER'S 1000 ML IV PRN (07:00)
[2017-07-31] MEDS ORDERED: POVIDONE IODINE 5% (ANTISEPSIS KIT) 4 APPLICATIONS EACH NARE PRN (07:00)
[2017-07-31] MEDS ORDERED: CHLORHEXIDINE GLUCONATE 2 % 1 PACK (2 CLOTHS) TOPICAL PRN (07:00)
[2017-07-31] MEDS ORDERED: METOPROLOL TARTRATE 25 MG TAB PO PRN (07:00)
[2017-07-31] MEDS ORDERED: SODIUM CHLORID 0.9% 500 ML IV PRN (07:00)
[2017-07-31] MEDS ORDERED: ceFAZolin INJ 1,000 MG VIAL ONE (07:05)
[2017-07-31] MEDS ORDERED: GENTAMICIN SULFATE 80 MG/2 ML VIAL ONE ×2 (07:05→07:15)
[2017-07-31] MEDS ORDERED: KETOROLAC TROMETHAMINE 30 MG/ML (IVP) VIAL ONE (07:05)
[2017-07-31] MEDS ORDERED: BUPIVACAINE/EPINEPHRINE 0.5% PF 30 ML VIAL ONE (07:10)
[2017-07-31] MEDS ORDERED: VANCOMYCIN 1 GM/200 ML PREMIX IV SCH (07:15)
[2017-07-31] MEDS ORDERED: CHLORHEXIDINE GLUCONATE 4% SOLN 120 ML BTL TOPICAL SCH (07:15)
[2017-07-31] MEDS ORDERED: ALEV220T14 PO (07:18)
[2017-07-31] MEDS ORDERED: APPLTAB2 PO (07:18)
[2017-07-31] MEDS ORDERED: FENO160T PO (07:18)
[2017-07-31 07:21] LABS: AUTOMATED NEUTROPHIL # 6.6 TH/MM3 (1.8-7.7); BASOPHIL # 0.1 TH/MM3 (0-0.2); BASOPHIL % 1.2 % (0.0-2.0); EOSINOPHIL # 0.3 TH/MM3 (0-0.4); EOSINOPHIL % 2.5 % (0.0-4.0); HEMATOCRIT 40.7 % (39.0-51.0); HEMOGLOBIN 13.5 GM/DL (13.0-17.0); LYMPH % 26.6 % (9.0-44.0); LYMPHOCYTE # 2.9 TH/MM3 (1.0-4.8); MEAN CELL VOLUME 88.4 FL (80.0-100.0); MEAN CORPUSCULAR HEMOGLOBIN 29.3 PG (27.0-34.0); MEAN CORPUSCULAR HGB CONC 33.2 % (32.0-36.0); MEAN PLATELET VOLUME 8.8 FL (7.0-11.0); MONO % 9.7 % (0.0-8.0); MONOCYTE # 1.1 TH/MM3 (0-0.9); PLATELET COUNT 373 TH/MM3 (150-450); RED CELL DISTRIBUTION WIDTH 15.1 % (11.6-17.2); WHITE BLOOD COUNT 11.1 TH/MM3 (4.0-11.0)
[2017-07-31] MEDS ORDERED: BUPIVACAINE/EPINEPHRINE 0.25% 50 ML VIAL ONE ×2 (07:50→07:51)
[2017-07-31] MEDS ORDERED: SODIUM CHLORIDE 0.9% 20 ML VIAL ONE (07:50)
--- NOTE | 2017-07-31 08:20 | EKG ---
Date Performed: 07/31/2017 Time Performed: 06:46:13 PTAGE: 56 years EKG: Sinus rhythm NORMAL ECG NO PREVIOUS TRACING DOCTOR: Juan Agee Interpretating Date/Time 07/31/2017 08:19:37
[2017-07-31] MEDS ORDERED: EXPAREL PERI-ARTICULAR INJECTION (TOTAL VOL. 60 ML) P-ARTICULR SCH ×2 (09:00)
[2017-07-31] MEDS ORDERED: ceFAZolin 2 GM PREMIX 50 ML IV SCH (09:00)
[2017-07-31] MEDS ORDERED: TRANEXAMIC ACID INJ 1,161 MG in SODIUM CHLORIDE 0.9% INJ 100 ML IV SCH (09:00)
[2017-07-31] MEDS ORDERED: ROCURONIUM INJ 50 MG/5 ML SYRINGE IV PUSH ONE (12:00)
[2017-07-31] MEDS ORDERED: PHENYLEPH/NS 1000 MCG/10 ML SYR IV ONE (12:00)
[2017-07-31] MEDS ORDERED: LIDOCAINE HCL 1% PF 5 ML SYRINGE OTHER ONE (12:00)
[2017-07-31] MEDS ORDERED: ONDANSETRON HCL 4 MG/2 ML VIAL IV ONE (12:00)
[2017-07-31] MEDS ORDERED: PROPOFOL 200 MG/20 ML AMP IV ONE (12:00)
[2017-07-31] MEDS ORDERED: KETOROLAC TROMETHAMINE 30 MG/ML (IVP) VIAL IV PUSH ONE (12:00)
[2017-07-31] MEDS ORDERED: DEXAMETHASONE SOD PHOS 4 MG/ML VIAL IV ONE (12:00)
[2017-07-31] MEDS ORDERED: LACTATED RINGER'S 1000 ML INJ 1,000 ML IV SCH (12:03)
[2017-07-31] MEDS ORDERED: NALOXONE HCL 0.4 MG/ML AMP IV PUSH PRN (12:15)
[2017-07-31] MEDS ORDERED: oxyCODONE/ACETAMINOPHEN 5 MG/325 MG TAB PO PRN (12:15)
[2017-07-31] MEDS ORDERED: TEMAZEPAM 15 MG CAP PO PRN (12:15)
[2017-07-31] MEDS ORDERED: MORPHINE SULFATE 8 MG/ML INJ IM PRN (12:15)
--- NOTE | 2017-07-31 12:19 | PD.OP ---
cc: Shukri Corral. Operative Report Osteoarthritis left knee Postoperative Diagnosis: Same Procedure: Left total knee replacement arthroplasty, posterior stabilized Anesthesia: General Surgeon: Shukri Corral Boiler Riveter(s): KEVIN Miles Operation and Findings: EBL: 100 cc INDICATION: This patient presents with long-standing arthritis of the knee. She had a previous valgus osteotomy for correction of a valgus malunion of the tibia and fibula. Attachment record documents conservative measures. The patient now presents for surgical treatment. NOTE: July Miles PA-C was present for the entire surgical procedure as my study assistant. In my medical opinion her skill and care was necessary for proper management of this patient. TOURNIQUET TIME: 66 minutes COMPANY: [employer] FEMUR: Size 7, posterior stabilized TIBIA: Size 7, fixed-bearing PATELLA: 35 mm POLYETHYLENE INSERT: 11 mm PROCEDURE: This patient was brought the operating room and anesthetized in the supine position. The patient was positioned supine on the table. The tourniquet was placed about the thigh, and the leg was scrubbed with alcohol followed by Hibiclens followed by ChloraPrep and draped sterilely. A timeout was done, and antibiotics were given. After exsanguination the tourniquet was inflated to 250 mmHg. An anterior incision was made and a median parapatellar arthrotomy was performed. The patella was released laterally and subluxed allowing freehand cut of the patella which was then sized. A metal cap was placed over the exposed patellar surface for protection. A rotor pilot hole was placed in the distal femur allowing a 4 valgus cut removing 10 mm from the distal femur. Anterior posterior and chamfer cuts were made. The posterior stabilize osteotomy was made. The attention was directed to the tibia. Retractors were positioned. The external alignment guide was used allowing the lateral tibia to be used as referencing guide and cut utilizing an oscillating saw taking care to avoid any injury to the surrounding soft tissues. This was sized properly. Trial reduction showed that the insert fit nicely. The patient had range of motion extension 0 flexion 125 . A medial release was not necessary. The bony surfaces prepared. On the back table 2 packets of methylmethacrylate were mixed. The components were cemented. Excess cement was removed. The tourniquet let down and hemostasis was controlled. The final plastic insert was inserted. Range of motion was the same as previously noted. A drain was brought through a separate stab incision. The arthrotomy was repaired with interrupted #1 Vicryl suture, subcutaneous tissue 2-0 Vicryl suture and skin with metallic evelina A sterile dressing was applied. Sponge counts, needle counts and instrument counts were all correct. The patient tolerated procedure well and was taken to recovery in satisfactory condition. FINDINGS: There was severe osteoarthritis of the knee especially in the lateral compartment. The final alignment was satisfactory. There was no complication. The patient's knee balanced very nicely. Local anesthesia with Exparel was used for a field block Shukri Corral MD Jul 31, 2017 12:19
[2017-07-31] MEDS ORDERED: ECASA81 PO (12:23)
[2017-07-31] MEDS ORDERED: OXYC1TAB63 PO (12:23)
[2017-07-31] MEDS ORDERED: Post-op Orders (for Pharmacy) XX ONE (12:27)
[2017-07-31] MEDS ORDERED: MORPHINE SULFATE 4 MG/ML INJ ONE (12:37)
[2017-07-31] MEDS ORDERED: MIDAZOLAM HCL 2 MG/2 ML VIAL ONE (12:37)
[2017-07-31] MEDS ORDERED: *morphine SULFATE 4 MG/ML PERIprocedure ONLY ONE ×2 (12:59→13:16)
[2017-07-31] MEDS ORDERED: DO NOT ADM ANY ANTICOAGULANT DRUGS PRN (13:00)
--- NOTE | 2017-07-31 13:05 | RADRPT ---
EXAM DATE/TIME: 07/31/2017 12:43 [facility] COMPARISON: No previous studies available for comparison. INDICATIONS : Post op left knee MEDICAL HISTORY : None. SURGICAL HISTORY : left knee replaced, prior ORIF tib/fib ENCOUNTER: Subsequent ACUITY: 1 day PAIN SCORE: 0/10 LOCATION: Left knee FINDINGS: 2 views left knee. Total knee prosthesis in place. Alignment within normal. No evidence of fracture. Cutaneous evelina anteriorly. CONCLUSION: Unremarkable postoperative appearance right total knee prosthesis. Joey Tobar MD on July 31, 2017 at 13:02 Board Certified Radiologist. This report was verified electronically.
[2017-07-31] MEDS ORDERED: HYDROmorphone HCL PF 0.5 MG/0.5 ML SYRINGE ONE (13:22)
[2017-07-31] MEDS ORDERED: ASPIRIN EC 81 MG TABEC PO ONE (13:30)
[2017-07-31] MEDS: oxyCODONE/ACETAMINOPHEN 5 MG/325 MG TAB PO PRN ×2 (15:50→19:41)
[2017-07-31 16:00] VITALS: BP 128/71; PULSE 80; RESP 18; TEMP 97.2; O2SAT 96
[2017-07-31 20:00] VITALS: BP 127/75; PULSE 88; RESP 17; TEMP 97.8; O2SAT 95
[2017-07-31] MEDS ORDERED: LORATADINE/PSEUDOEPHEDRINE 5 MG/120 MG TAB PO PRN (21:00)
[2017-07-31] MEDS: ASPIRIN EC 81 MG TABEC PO SCH (21:29)
[2017-08-01] VITALS: BP 140/68; PULSE 87; RESP 18; TEMP 97.9; O2SAT 96
[2017-08-01] MEDS: oxyCODONE/ACETAMINOPHEN 5 MG/325 MG TAB PO PRN ×4 (01:09→12:54)
[2017-08-01 04:00] VITALS: BP 138/53; PULSE 89; RESP 18; TEMP 98.1; O2SAT 95
[2017-08-01 07:06] LABS: HEMATOCRIT 34.4 % (39.0-51.0); HEMOGLOBIN 11.5 GM/DL (13.0-17.0)
[2017-08-01 07:57] VITALS: BP 139/74; PULSE 94; RESP 18; TEMP 98.5; O2SAT 95
[2017-08-01] MEDS: ASPIRIN EC 81 MG TABEC PO SCH (08:13)
[2017-08-01] MEDS ORDERED: FENOFIBRATE 145 MG TAB PO SCH (09:00)
[2017-08-01] MEDS ORDERED: METOPROLOL SUCCINATE 50 MG EXTENDED RELEASE TAB PO SCH (09:00)
[2017-08-01] MEDS ORDERED: PANTOPRAZOLE SOD 40 MG DELAYED RELEASE TAB PO SCH (09:00)
[2017-08-01] MEDS ORDERED: CPMMACHINE (10:05)
[2017-08-01] MEDS ORDERED: WALKER WHEELS/F1 MIS (10:06)
[2017-08-01] MEDS ORDERED: COMMODE 3-IN-11 MIS (10:07)
--- NOTE | 2017-08-01 10:08 | HHI.FF ---
Face to Face Verification Diagnosis: (1) Osteoarthritis of left knee Physical Therapy Gait training, Safety evaluation, Transfer training, bed to chair Knee: Total knee, Protocol: Left, Full weight bearing Canvas Knee Splint: When in bed & 2 pillows btw thighs Left LE Weight Bearing: WB as tolerated Additional Instructions PT 3-4x/wk for 2 weeks. WBAT Left LE. TKA protocol. Cpm bid as tolerated, 0- 60 with goal 100 flexion. CKS when in bed for 3-4 weeks. Nursing RN Days per Week: 2 x Week(s): 1 Nursing: Dressing changes, Other Dressing Changes: Do not change dressing Additional Instructions Vitals assessment. Dressing assessment - do not change unless saturated. I have seen patient Du Hernandez on 08/01/17. My clinical findings support the need for the requested home health care services because: Limited ability to care for self High risk of falls I certify that my clinical findings support that this patient is homebound because: Post-op weakness Unsteady gait/balance Sujey Centeno Aug 01, 2017 10:08
--- NOTE | 2017-08-01 10:09 | HHI.DCPOC ---
Discharge Care Plan Diagnosis: (1) Osteoarthritis of left knee Your Health Problems Are: Difficulty with ADL Incision/Drains Swelling Goals to Promote Your Health * To prevent worsening of your condition and complications * To maintain your health at the optimal level Directions to Meet Your Goals Take your medications as prescribed Follow your dietary instruction Follow activity as directed Keep your appointments as scheduled Take your immunizations and boosters as scheduled If your symptoms worsen call your PCP, if no PCP go to Urgent Care Center or Emergency Room Smoking is Dangerous to Your Health. Avoid second hand smoke Call the 24-hour hour crisis hotline for domestic abuse at Sujey Centeno Aug 01, 2017 10:08
[2017-08-01 11:36] VITALS: BP 135/64; PULSE 76; RESP 18; TEMP 98.3; O2SAT 96
--- NOTE | 2017-08-01 13:13 | PD.ORT.PN ---
Subjective Subjective Remarks Doing much better than with his right knee. His pain is well controlled. Ready for discharge. No new CP, SOB or abd pain. Appetite is good. Objective Vitals Vital Signs Date Time Temp Pulse Resp B/P (MAP) Pulse Ox O2 Delivery O2 Flow Rate FiO2 08/01/17 11:36 98.3 76 18 135/64 (87) 96 08/01/17 07:57 98.5 94 18 139/74 (95) 95 08/01/17 04:00 98.1 89 18 138/53 (81) 95 08/01/17 00:00 97.9 87 18 140/68 (92) 96 07/31/17 20:00 97.8 88 17 127/75 (92) 95 07/31/17 16:00 97.2 80 18 128/71 (90) 96 07/31/17 14:54 Nasal Cannula 2.00 07/31/17 14:15 98.2 76 18 129/83 (98) 97 Nasal Cannula 3 07/31/17 14:00 80 18 144/83 (103) 99 Nasal Cannula 3 07/31/17 13:45 Nasal Cannula 3 07/31/17 13:30 79 18 141/91 (108) 99 Nasal Cannula 3 07/31/17 13:15 79 18 161/91 (114) 99 Nasal Cannula 3 I/O 07/31/17 07/31/17 07/31/17 08/01/17 08/01/17 08/01/17 07:00 15:00 23:00 07:00 15:00 23:00 Intake Total 2000 ml 480 ml Output Total 50 ml Balance 1950 ml 480 ml Intake Oral 480 ml IV Total 2000 ml Output Estimated Blood Loss 50 ml # Voids 2 # Bowel Movements 0 Result Diagram: 08/01/17 0636 Objective Remarks Sitting up in bed NAD VSS LLE Knee dressing intact, mild SS drainage, mild swelling, no erythema +motor at, +sens, +nvi Neg homans Assessment & Plan Ortho Post Op Day #: 1 Problem List: Assessment and Plan pod#1 s/p L TKA Doing well. Pain controlled. Ok to d//c home today w [facility]. PO meds as needed. ASA 81mg written. PT - WBAT LLE. TKA protocol. CKS when in bed for 3-4 weeks. Hold dressing changes unless saturated. F2F written. F/U in 2 weeks as scheduled. Sujey Centeno Aug 01, 2017 13:13
--- NOTE | 2017-08-01 13:14 | HHI.DS ---
Discharge Summary Admission Date Jul 31, 2017 at 06:21 Discharge Date: Aug 01, 2017 Admitting Diagnosis see below Diagnosis: (1) Osteoarthritis of left knee Diagnosis: Principal ICD Codes: M17.12 - Unilateral primary osteoarthritis, left knee Procedures Left total knee arthroplasty Brief History This is a 56 year old male patient CBC/BMP: 08/01/17 0636 Significant Findings Laboratory Tests Test 07/31/17 07:10 08/01/17 06:36 White Blood Count 11.1 TH/MM3 (4.0-11.0) Monocytes (%) (Auto) 9.7 % (0.0-8.0) Monocytes # (Auto) 1.1 TH/MM3 (0-0.9) Hemoglobin 11.5 GM/DL (13.0-17.0) Hematocrit 34.4 % (39.0-51.0) PE at Discharge Sitting up in bed NAD VSS LLE Knee dressing intact, mild SS drainage, mild swelling, no erythema +motor at, +sens, +nvi Neg [facility] d/c pod#1. Percocoet. ASA 81mg Pt Condition on Discharge: Stable Discharge Disposition: Disch w/ Home Health Serv Discharge Instructions Diet Instructions: As Tolerated, No Restrictions Activities You Can Perform: Weight Bearing as Ruben New Medications: Commode 3-in-1 (Commode 3-in-1) 1 Mis Mis EA .XX DIRECTED, #1 0 Refills CPM-Continuous Passive Motion Machine (CPM-Continuous Passive Motion Machine) 1 Ea Device EA .XX DIRECTED, #1 0 Refills Walker with Front Wheels (Walker with Front Wheels) 1 Mis Mis EA .XX DIRECTED, #[address] (Aspirin DR) 81 Mg Tabdr 81 MG PO ONCE for Prevent Blood Clot, #60 TAB Oxycodone HCl/Acetaminophen (Oxycodone-Acetaminophen 5-325) 5 Mg-325 Mg Tablet 1 TAB PO Q4H PRN for Pain, #42 TAB Continued Medications: Apple Cider Vinegar (Apple Cider Vinegar) 500 Mg Tab 1 TAB PO BID Fenofibrate (Fenofibrate) 160 Mg Tab 160 MG PO DAILY, #30 TAB 0 Refills Hydrocodone-Acetaminophen (Hydrocodone-Acetaminophen) 5-325 mg Tab 1 TAB PO Q8HR PRN for PAIN, TAB 0 Refills Loratadine-Pseudoephedrine 24 HR (Claritin-D 24 HR) 10-240 Mg Tab 1 TAB PO DAILY PRN for ALLERGIES, TAB 0 Refills Metoprolol Succinate ER 24 HR (Metoprolol Succinate ER 24 HR) 100 Mg Tab 150 MG PO DAILY, #30 TAB 0 Refills Multiple Vitamin (Multi Vitamin Daily) 1 Tab Tab 1 TAB PO DAILY for Nutritional Supplement Naproxen Sodium (Aleve Arthritis) 220 Mg Tab 220 MG PO BID, TAB Omeprazole (Omeprazole) 40 Mg Cap 40 MG PO DAILY, #30 CAP 0 Refills Sujey Centeno Aug 01, 2017 13:14
== END 2017-08-01 15:33 | disposition home health service (06) | DRG 470 ==
LOC: HSDI 07-31 06:21 → N06B 07-31 15:06
PROVIDERS: ADMIT Orthopaedic Surgery Orthopaedic Surgery of the Spine; ATTEND Orthopaedic Surgery Orthopaedic Surgery of the Spine
PROC: 3E0T3BZ Introduction of Anesthetic Agent into Peripheral Nerves and Plexi, Percutaneous Approach (ICD-10-PCS; 2017-07-31)
PROC: 0SRD0J9 Replacement of Left Knee Joint with Synthetic Substitute, Cemented, Open Approach (ICD-10-PCS; principal; 2017-07-31 09:39)
DX: M17.12 Unilateral primary osteoarthritis, left knee (principal); I10 Essential (primary) hypertension; M54.9 Dorsalgia, unspecified; K21.9 Gastro-esophageal reflux disease without esophagitis
CPT/HCPCS: 73560; 85014; 85018; 85025; 86850; 86900; 86901; 86920; 93005; 94150; C1776; C9290; J0690; J1100; J1170; J1580; J1885; J2250; J2270; J2370; J2405; J3010; J3370; J7120; L1830